=== PATIENT | male | born 1985 | race Caucasian/White ===

== ENCOUNTER 2017-05-26 08:05 | Emergency (ER) | payer MEDICAID ==
--- NOTE | 2017-05-26 08:43 | EDM.PDOC ---
ED HPI GENERAL MEDICAL PROBLEM - General Chief Complaint: Skin Complaint Stated Complaint: SKIN COMPLAINT Time Seen by Provider: 05/26/17 08:32 Source of Information: Reports: Patient History Limitations: Reports: No Limitations - History of Present Illness INITIAL COMMENTS - FREE TEXT/NARRATIVE: 32-year-old male attends the ED with complaints of intermittent nausea vomiting and loose stools for the better part of 2 weeks. He has some inclination this this seemed to start after reintroducing Suboxone to his system after a 5-7 day absence of use of medication. There is still a possibility of 80 picked up foodborne illness which is getting better on its own. As well. His third complaint is that of contact itching when he scratches or gets in the shower he will break out in hives. He recognized that the scratches then he'll have welts in that area within 5 minutes. He did have one loose stool this morning. Yesterday was a better day and he hasn't vomited for 3 days. Off the Suboxone for about 5 days. Therefore withdrawal symptoms are pretty well gone. Onset: Gradual Onset Date: 05/15/17 (Symptoms of nausea vomiting and loose stools started about 12 days ago. Appreciated intermittent hives and itchiness over the last week or 10 days.) Duration: Intermittent, Improving Location: Reports: Abdomen, Generalized Quality: Reports: Other (Generalized pruritus worsened by scratching with development of hives.) Severity: Moderate Improves with: Reports: Other (Non-scratching) Worsens with: Reports: Other (Hot or cold water exposure or scratching.) Context: Reports: Exercise, Other (Symptoms of nausea vomiting diarrhea for the better part of 2 weeks into started since starting back on Suboxone. He has stopped for the last 5 days and symptoms seem to be improving. Is also possibly be picked up foodborne illness. At any rate it is resolving and was not really address today. He can eat and drink almost anything he wants.). Denies: Activity, Lifting, Sick Contact, Trauma Associated Symptoms: Reports: Other (Skin rash i.e. 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 Also had issues with opiate addiction.) ED ROS GENERAL - Review of Systems Review Of Systems: See Below Constitutional: Reports: Decreased Appetite, Weight Loss. Denies: Fever, Chills , Malaise, Weakness, Fatigue HEENT: Reports: Throat Swelling Respiratory: Reports: No Symptoms. Denies: Wheezing Cardiovascular: Reports: No Symptoms Endocrine: Reports: Fatigue GI/Abdominal: Reports: Abdominal Pain (Intermittent mild abdominal cramping pain.), Diarrhea (Loose stools with the last one occurring this morning.), Decreased Appetite, Nausea, Vomiting (Intermittent nausea and vomiting for the last 2 weeks no vomiting for 3 days.) : Reports: No Symptoms ( Started once or twice daily.) Musculoskeletal: Reports: No Symptoms Skin: Reports: Pruritis, Urticaria (Itching and development of hives intermittently.) Neurological: Reports: No Symptoms ED EXAM, SKIN/RASH Exam: See Below Exam Limited By: No Limitations General Appearance: Alert, WD/WN, No Apparent Distress Eye Exam: Bilateral Eye: Normal Inspection Throat/Mouth: Normal Inspection, Normal Lips, Normal Teeth, Normal Oropharynx, Other Head: Atraumatic, Normocephalic Neck: Normal Inspection (Uvula or floor of mouth are normal), Supple, Non-Tender , Full Range of Motion. No: Lymphadenopathy (L), Lymphadenopathy (R) Respiratory/Chest: No Respiratory Distress, Lungs Clear, Normal Breath Sounds Cardiovascular: Normal Peripheral Pulses, Regular Rate, Rhythm, No Edema, No Gallop, No Murmur GI/Abdominal: Normal Bowel Sounds, Soft, Non-Tender, No Organomegaly Back Exam: Normal Inspection, Full Range of Motion. No: CVA Tenderness (L), CVA Tenderness (R) Extremities: Normal Inspection, Normal Range of Motion, Non-Tender, No Pedal Edema Neurological: Alert, Oriented, CN II-XII Intact, Normal Cognition, Normal Gait Psychiatric: Normal Affect, Normal Mood Skin: Warm, Dry, Intact, Normal Color, Other (He has a contact urticaria or physical-induced urticaria when scratching his back.) Characteristics: Urticarial Course - Vital Signs Last Recorded V/S: Last Vital Signs Temp 36.4 C 05/26/17 08:22 Pulse 72 05/26/17 08:22 Resp 16 05/26/17 08:22 BP 135/82 05/26/17 08:22 Pulse Ox 100 05/26/17 08:22 - Radiology Interpretation Free Text/Narrative:: 32-year-old male presents to the ED with a history of 2 weeks of intermittent nausea vomiting and diarrhea. Diarrhea is been more loose stools with versus high-volume water loss. Hasn't vomited for 3 days. The potential for nausea vomiting is either that of intrarenal introduction of Suboxone or withdrawal from Suboxone and/or foodborne illness both of which he seems to be resolving from. He hasn't taken Suboxone now for 5 days and withdrawal symptoms are now going away. His other major problem was development of urticaria especially contact urticaria where he scratches his skin will develop hives or wheals. Decision made that he is looking good enough that he does not need a bunch of blood work done. I will place him on prednisone 20 mg twice daily for 6 days at breakfast and supper and then once daily in the morning for another 6 days to stabilize mass cells in his skin. Follow-up if he is not markedly improved after this course of treatment Departure - Departure Time of Disposition: 08:46 Disposition: Home, Self-Care 01 Condition: Fair Clinical Impression: Atopic dermatitis Qualifiers: Atopic dermatitis type: intrinsic Qualified Code(s): L20.84 - Intrinsic ( allergic) eczema - Discharge Information Prescriptions: Prednisone [IJD: predniSONE] 20 mg PO ASDIRECTED #18 tab Referrals: PCP,None [Primary Care Provider] - Forms: ED Department Discharge Additional Instructions: Evaluation the emergency room this morning in regards to symptoms of intermittent nausea vomiting and diarrhea. This started after reintroducing Suboxone to your system just most likely the culprit. It is still possible that you picked up a food borne illness which you are getting rid of on your own. We' ll await a tablet would be one shoe reintroduce the Suboxone similar symptoms recur. In regards to the breaking out in welts on contact this is due to instability of mass cells underneath the skin which again as part of an allergic reaction. The Suboxone probably has a lot to do with this. Treatment is thus prednisone 20 mg breakfast and supper for 6 days then 1 tablet in the morning for another 6 days to stabilize the mass cells prevent them from breaking down in releasing histamine and other chemicals causing the allergic response. Take about a day or so before to start to work well and then things should gradually improve with no further hive development.
== END 2017-05-26 09:13 | disposition home or self-care (01) ==
LOC: JD.ED 08:05
DX: L20.84 Intrinsic (allergic) eczema (principal); Z88.0 Allergy status to penicillin
CPT/HCPCS: 99283